=== PATIENT | female | born 1990 | race Caucasian/White ===

== ENCOUNTER 2018-04-13 11:29 | Emergency (ER) | payer SELFPAY ==
[~2018-04-13] VITALS: Ht 165.1 cm; Wt 50.8 kg
--- NOTE | 2018-04-13 11:53 | NUR ---
PT SOB, POSS ASTHMA ATTACK, RUN OUT OF INHALER PER PT. ALERT AND ORIENTED X 4, VERBALLY RESPONSIVE AND ABLE TO MAKE NEEDS KNOWN. ON ROOM AIR, 02 SAT 97%, BREATHING EVENLY, AND UNLABORED. DENIES ANY PAIN AT THIS TIME. PUT HER ON A GOWN, FOR EXAMINATION. KEPT COMFORTABLE, WILL CONTINUE TO MONITOR ACCORDINGLY.
[2018-04-13] MEDS ORDERED: predniSONE 20 MG TABLET ONE (12:28)
[2018-04-13] MEDS ORDERED: predniSONE 20 MG TABLET PO ONE (12:30)
[2018-04-13] MEDS ORDERED: ALBUTEROL FS 2.5 MG/3 ML VIAL.NEB NEB ONE ×2 (12:30→13:00)
[2018-04-13] MEDS ORDERED: ALBUTEROL FS 2.5 MG/3 ML VIAL.NEB ONE ×2 (12:35→12:42)
[2018-04-13 13:01] VITALS: BP 128/70
--- NOTE | 2018-04-13 13:03 | NUR ---
Patient discharged to home in stable condition. Written and verbal after care instructions given. Patient verbalizes understanding of instruction.
== END 2018-04-13 13:03 | disposition home or self-care (01) ==
LOC: ER 11:35
DX: J45.901 Unspecified asthma with (acute) exacerbation (principal); Z98.890 Other specified postprocedural states; Z60.2 Problems related to living alone
CPT/HCPCS: 94640; 99283; J7512; Z7610; A4606